=== PATIENT | female | born 1955 | race Caucasian/White ===

== ENCOUNTER 2019-04-16 04:28 | Emergency (ER) | payer BC ==
[2019-04-16] MEDS: ONDANSETRON 4 MG INJ IV (06:57)
[2019-04-16] MEDS: morphine 4 MG/ML VIAL IV (06:58)
[2019-04-16] MEDS: METHYLPREDNISOLONE 125 MG INJ IV (06:58)
[2019-04-16 07:05] LABS: WHITE BLOOD COUNT 11.9 10^3/ul (4.8-10.8)
[2019-04-16 07:05] LABS: HEMATOCRIT 38.2 % (37.0-47.0); HEMOGLOBIN 12.7 g/dl (12.0-16.0); MEAN CORPUSCULAR HEMOGLOBIN 29.4 pg (29.0-33.0); MEAN CORPUSCULAR HGB CONC 33.2 g/dl (32.0-37.0); MEAN CORPUSCULAR VOLUME 88.4 fl (82.0-101.0); MEAN PLATELET VOLUME 10.5 fl (7.4-10.4); PLATELET COUNT 170 10^3/UL (140-415); RED BLOOD COUNT 4.32 10^6/ul (4.20-5.40); RED CELL DISTRIBUTION WIDTH 12.8 % (11.5-14.5)
[2019-04-16 07:09] LABS: POSITIVE DIFF @See below
[2019-04-16 07:10] LABS: ADD MAN DIFF? YES
[2019-04-16] MEDS: IPRATROPIUM (NEB) 0.5 MG/2.5 ML AMP INH (07:16)
[2019-04-16] MEDS: ALBUTEROL 0.5% (NEB) 2.5 MG/0.5 ML AMP INH (07:16)
[2019-04-16 07:27] LABS: INR 1.14; PROTIME 14.7 Sec (11.9-14.9); PT RATIO 1.1
[2019-04-16 07:28] LABS: PARTIAL THROMBOPLASTIN TIME 36.3 Sec (23.0-35.0)
[2019-04-16 07:30] LABS: ALANINE AMINOTRANSFERASE 15 IU/L (13-69); ALBUMIN 4.3 g/dl (3.3-4.9); ALKALINE PHOSPHATASE 81 IU/L (42-121); ANION GAP 11 (5-13); ASPARTATE AMINO TRANSFERASE 20 IU/L (15-46); BILIRUBIN,INDIRECT 1.5 mg/dl (0-1.1); BILIRUBIN,TOTAL 1.5 mg/dl (0.2-1.3); BLOOD UREA NITROGEN 20 mg/dl (7-20); CALCIUM 9.4 mg/dl (8.4-10.2); CARBON DIOXIDE 25 mmol/L (21-31); CHLORIDE 99 mmol/L (97-110); CREATINE KINASE 63 IU/L (23-200); CREATININE 0.85 mg/dl (0.44-1.00); Estimated GFR > 60 mL/min (>60); GLUCOSE 298 mg/dl (70-220); POTASSIUM 4.6 mmol/L (3.5-5.1); SODIUM 135 mmol/L (135-144); TOTAL PROTEIN 8.2 g/dl (6.1-8.1)
[2019-04-16 07:41] LABS: B-TYPE NATRIURETIC PEPTIDE 136 PG/ML (0-125); CK INDEX 0.5; CK-MB 0.32 ng/ml (0.0-2.4); TROPONIN-I < 0.012 ng/ml (0.000-0.120)
[2019-04-16 08:51] LABS: BAND NEUTROPHILS #M 2.2 10^3/ul (0.0-0.6); BAND NEUTROPHILS % (M) 19 % (0-4); LYMPHOCYTES #M 0.4 10^3/ul (0.8-2.9); LYMPHOCYTES % (M) 4 % (15-51); MONOCYTE #M 0.4 10^3/ul (0.3-0.9); MONOCYTES % (M) 4 % (0-11); PLATELET ESTIMATE NORMAL; SEG NEUT #M 8.9 10^3/ul (1.6-7.5); SEGMENTED NEUTROPHILS (M) % 73 % (39-77)
[2019-04-16] MEDS: CEFTRIAXONE 1 GM/50 ML (PMX) 50 ML IVPB (09:03)
[2019-04-16] MEDS: AZITHROMYCIN 500MG/NS (PMX) 250 ML IV (09:36)
[2019-04-16 10:18] LABS: D-DIMER 1117.65 ng/ml (<460)
[2019-04-16] MEDS: SOD CHLORIDE 0.9% 100 ML (11:14)
[2019-04-16] MEDS: IOHEXOL 100 ML (11:15)
== END 2019-04-16 13:34 | disposition home or self-care (01) ==
LOC: E/R 04:28
DX: J45.901 Unspecified asthma with (acute) exacerbation (principal); Z79.84 Long term (current) use of oral hypoglycemic drugs
CPT/HCPCS: 36415; 71045; 71275; 80053; 82550; 82553; 83880; 84484; 85025; 85378; 85610; 85730; 87040-91; 93005; 94644; 96365; 96367; 96375; 99285-25

== ENCOUNTER 2019-04-23 16:26 | Inpatient (IN) | payer BC ==
[2019-04-23] MEDS ORDERED: ZOLPIDEM 5 MG TAB PO (17:30)
[2019-04-23] MEDS: LOSARTAN 50 MG TAB PO ×2 (17:30→18:51)
[2019-04-23] MEDS ORDERED: ACETAMINOPHEN 325 MG TAB PO (17:30)
[2019-04-23 18:05] LABS: ADD MAN DIFF? NO
[2019-04-23 18:09] LABS: BASOPHIL # 0.1 10^3/ul (0.0-0.1); BASOPHILS % 0.4 % (0.0-2.0); EOSINOPHILS # 0.1 10^3/ul (0.0-0.5); EOSINOPHILS % 0.7 % (0.0-7.0); HEMATOCRIT 37.8 % (37.0-47.0); HEMOGLOBIN 12.4 g/dl (12.0-16.0); LYMPHOCYTES # 2.1 10^3/ul (0.8-2.9); LYMPHOCYTES % 12.3 % (15.0-51.0); MEAN CORPUSCULAR HEMOGLOBIN 28.7 pg (29.0-33.0); MEAN CORPUSCULAR HGB CONC 32.8 g/dl (32.0-37.0); MEAN CORPUSCULAR VOLUME 87.5 fl (82.0-101.0); MEAN PLATELET VOLUME 9.8 fl (7.4-10.4); MONOCYTE # 0.5 10^3/ul (0.3-0.9); MONOCYTES % 2.8 % (0.0-11.0); NEUTROPHIL # 13.5 10^3/ul (1.6-7.5); NEUTROPHILS % 79.7 % (39.0-77.0); PLATELET COUNT 337 10^3/UL (140-415); RED BLOOD COUNT 4.32 10^6/ul (4.20-5.40); RED CELL DISTRIBUTION WIDTH 14.2 % (11.5-14.5)
[2019-04-23 18:28] LABS: INR 1.22; PROTIME 15.5 Sec (11.9-14.9); PT RATIO 1.2
[2019-04-23] MEDS ORDERED: GLUCAGON 1 MG INJ IM (18:30)
[2019-04-23] MEDS ORDERED: GLUCOSE GEL 15 GRAM TUBE BUCCAL (18:30)
[2019-04-23] MEDS ORDERED: DEXTROSE 50% 50 ML SYRINGE IV ×2 (18:30)
[2019-04-23] MEDS ORDERED: GLUCOSE GEL 15 GRAM TUBE PO ×2 (18:30)
[2019-04-23 18:32] LABS: ALANINE AMINOTRANSFERASE 47 IU/L (13-69); ALBUMIN 3.6 g/dl (3.3-4.9); ALBUMIN/GLOBULIN RATIO 0.87; ALKALINE PHOSPHATASE 89 IU/L (42-121); ANION GAP 11 (5-13); ASPARTATE AMINO TRANSFERASE 26 IU/L (15-46); BILIRUBIN,INDIRECT 0.8 mg/dl (0-1.1); BILIRUBIN,TOTAL 0.8 mg/dl (0.2-1.3); BLOOD UREA NITROGEN 24 mg/dl (7-20); CALCIUM 8.9 mg/dl (8.4-10.2); CARBON DIOXIDE 22 mmol/L (21-31); CHLORIDE 102 mmol/L (97-110); CREATININE 0.56 mg/dl (0.44-1.00); Estimated GFR > 60 mL/min (>60); GLUCOSE 318 mg/dl (70-220); PHOSPHORUS 3.8 mg/dl (2.5-4.9); SODIUM 135 mmol/L (135-144); TOTAL PROTEIN 7.7 g/dl (6.1-8.1)
[2019-04-23] MEDS: SOD CHLORIDE 0.9% 1,000 ML IV (18:48)
[2019-04-23 18:58] LABS: POTASSIUM 4.1 mmol/L (3.5-5.1)
[2019-04-23] MEDS: metFORMIN 500 MG TAB PO (19:16)
[2019-04-23] MEDS: INSULIN ASPART [NOVOLOG] 3 ML PEN SC (19:17)
[2019-04-23 19:27] LABS: ERYTHROCYTE SEDIMENTATION RATE 80 mm/Hr (0-30)
[2019-04-23] MEDS: ALBUTEROL/IPRATROPIUM (NEB) 3 ML AMP HHN (19:49)
[2019-04-23] MEDS: DIPHENHYDRAMINE 25 MG CAP PO (20:43)
[2019-04-23] MEDS: GABAPENTIN 300 MG CAP PO (20:43)
[2019-04-23] MEDS: GUAIFENESIN/DM (SR) TAB PO (20:43)
[2019-04-23] MEDS: ATORVASTATIN 10 MG TAB PO (20:43)
[2019-04-23] MEDS: INSULIN GLARGINE [LANTus] (100 UNITS/ML) SYG SC (20:44)
[2019-04-23 23:23] LABS: C-REACTIVE PROTEIN 15.9 mg/dl (0.0-0.9)
[2019-04-24] MEDS: PANTOPRAZOLE (EC) 40 MG TAB PO (05:44)
[2019-04-24 06:20] LABS: ADD UMIC YES; UR ASCORBIC ACID NEGATIVE (NEGATIVE); UR BACTERIA FEW /HPF (NONE SEEN); UR BILIRUBIN (Dip) NEGATIVE (NEGATIVE); UR BLOOD (Dip) NEGATIVE (NEGATIVE); UR CLARITY SLIGHTLY CLOUDY (CLEAR); UR COLOR AMBER (YELLOW); UR GLUCOSE (Dip) 3+ mg/dL (NEGATIVE); UR KETONES (Dip) TRACE mg/dL (NEGATIVE); UR LEUKOCYTE ESTERASE (Dip) TRACE Leu/ul (NEGATIVE); UR MUCUS MODERATE /HPF (NONE SEEN); UR NITRITE (Dip) NEGATIVE (NEGATIVE); UR RBC 8 /HPF (0-5); UR SPECIFIC GRAVITY (Dip) 1.035 (1.003-1.030); UR SQUAMOUS EPITHELIAL CELL FEW /HPF (FEW); UR TOTAL PROTEIN (Dip) 1+ mg/dl (NEGATIVE); UR UROBILINOGEN (Dip) NEGATIVE (NEGATIVE); UR WBC 18 /HPF (0-5)
[2019-04-24 06:28] LABS: ADD MAN DIFF? NO
[2019-04-24 06:35] LABS: BASOPHIL # 0.1 10^3/ul (0.0-0.1); BASOPHILS % 0.5 % (0.0-2.0); EOSINOPHILS # 0.2 10^3/ul (0.0-0.5); EOSINOPHILS % 1.3 % (0.0-7.0); HEMATOCRIT 36.4 % (37.0-47.0); HEMOGLOBIN 12.1 g/dl (12.0-16.0); LYMPHOCYTES # 2.1 10^3/ul (0.8-2.9); LYMPHOCYTES % 13.7 % (15.0-51.0); MEAN CORPUSCULAR HEMOGLOBIN 29.1 pg (29.0-33.0); MEAN CORPUSCULAR HGB CONC 33.2 g/dl (32.0-37.0); MEAN CORPUSCULAR VOLUME 87.5 fl (82.0-101.0); MEAN PLATELET VOLUME 10.3 fl (7.4-10.4); MONOCYTE # 0.6 10^3/ul (0.3-0.9); MONOCYTES % 3.6 % (0.0-11.0); NEUTROPHIL # 11.6 10^3/ul (1.6-7.5); NEUTROPHILS % 76.6 % (39.0-77.0); PLATELET COUNT 354 10^3/UL (140-415); RED BLOOD COUNT 4.16 10^6/ul (4.20-5.40); RED CELL DISTRIBUTION WIDTH 14.2 % (11.5-14.5)
[2019-04-24 06:35] LABS: WHITE BLOOD COUNT 15.1 10^3/ul (4.8-10.8)
[2019-04-24 07:04] LABS: Estimated GFR > 60 mL/min (>60)
[2019-04-24 07:15] LABS: ANION GAP 11 (5-13); CHLORIDE 105 mmol/L (97-110); POTASSIUM 4.2 mmol/L (3.5-5.1); SODIUM 137 mmol/L (135-144)
[2019-04-24 07:16] LABS: ALANINE AMINOTRANSFERASE 39 IU/L (13-69); ALBUMIN 3.3 g/dl (3.3-4.9); ALBUMIN/GLOBULIN RATIO 0.84; ALKALINE PHOSPHATASE 78 IU/L (42-121); ASPARTATE AMINO TRANSFERASE 24 IU/L (15-46); BILIRUBIN,INDIRECT 0.9 mg/dl (0-1.1); BILIRUBIN,TOTAL 0.9 mg/dl (0.2-1.3); BLOOD UREA NITROGEN 25 mg/dl (7-20); CALCIUM 8.5 mg/dl (8.4-10.2); CARBON DIOXIDE 21 mmol/L (21-31); CREATININE 0.56 mg/dl (0.44-1.00); GLUCOSE 230 mg/dl (70-220); PHOSPHORUS 3.6 mg/dl (2.5-4.9); TOTAL PROTEIN 7.2 g/dl (6.1-8.1)
[2019-04-24 07:34] LABS: T3 UPTAKE 46.9 % (23.5-40.5)
[2019-04-24] MEDS: ALBUTEROL/IPRATROPIUM (NEB) 3 ML AMP HHN ×3 (07:36→21:42)
[2019-04-24 07:50] LABS: HEMOGLOBIN A1C 8.3 % (0-5.9)
[2019-04-24] MEDS ORDERED: VANCOMYCIN IV PER PHARMACY XX (08:30)
[2019-04-24] MEDS: GUAIFENESIN/DM (SR) TAB PO ×2 (09:04→20:14)
[2019-04-24] MEDS: LOSARTAN 50 MG TAB PO (09:04)
[2019-04-24] MEDS: ESTRADIOL 1 MG TAB PO (09:04)
[2019-04-24] MEDS: metFORMIN 500 MG TAB PO ×2 (09:04→17:36)
[2019-04-24] MEDS: GABAPENTIN 300 MG CAP PO ×2 (09:04→20:16)
[2019-04-24] MEDS: SERTRALINE 100 MG TAB PO (09:04)
[2019-04-24] MEDS: L ACIDOPHIL/B LACTIS/B LONGUM CAPSULE PO ×2 (09:05→20:14)
[2019-04-24] MEDS: ENOXAPARIN 40 MG/0.4 ML SYG SC (09:09)
[2019-04-24] MEDS: VANCOMYCIN 1 GM 250 ML IVPB (10:07)
[2019-04-24 11:21] LABS: PROCALCITONIN 0.13 ng/mL (0.00-0.10)
[2019-04-24 11:36] LABS: FREE THYROXINE INDEX (Calc) 3.24 ug/ml (0.65-3.89); T4 (THYROXINE) 6.9 ug/dl (5.5-11.0)
[2019-04-24] MEDS: PIPER-TAZO 3.375 GM IV (PMX) 100 ML IVPB ×3 (12:14→23:29)
[2019-04-24] MEDS: DIPHENHYDRAMINE 25 MG CAP PO ×2 (12:49→22:29)
[2019-04-24] MEDS: INSULIN ASPART [NOVOLOG] 3 ML PEN SC ×3 (13:09→21:00)
[2019-04-24] MEDS: SOD CHLORIDE 0.9% 1,000 ML IV (17:36)
[2019-04-24] MEDS: HYDROCODONE/APAP (5/325) TAB PO (19:02)
[2019-04-24] MEDS: ATORVASTATIN 10 MG TAB PO (20:14)
[2019-04-24] MEDS: INSULIN GLARGINE [LANTus] (100 UNITS/ML) SYG SC (20:17)
[2019-04-24] MEDS: VANCOMYCIN 500 MG (PMX) 100 ML IVPB (21:48)
[2019-04-25] MEDS: ACCU-CHEK XX (01:41)
[2019-04-25 05:15] LABS: ADD MAN DIFF? NO
[2019-04-25 05:22] LABS: BASOPHILS % 0.3 % (0.0-2.0); EOSINOPHILS # 0.2 10^3/ul (0.0-0.5); EOSINOPHILS % 1.6 % (0.0-7.0); HEMATOCRIT 34.6 % (37.0-47.0); HEMOGLOBIN 11.2 g/dl (12.0-16.0); LYMPHOCYTES % 14.4 % (15.0-51.0); MEAN CORPUSCULAR HEMOGLOBIN 29.2 pg (29.0-33.0); MEAN CORPUSCULAR HGB CONC 32.4 g/dl (32.0-37.0); MEAN CORPUSCULAR VOLUME 90.1 fl (82.0-101.0); MEAN PLATELET VOLUME 10.1 fl (7.4-10.4); MONOCYTE # 0.5 10^3/ul (0.3-0.9); MONOCYTES % 3.8 % (0.0-11.0); NEUTROPHIL # 10.4 10^3/ul (1.6-7.5); PLATELET COUNT 327 10^3/UL (140-415); RED BLOOD COUNT 3.84 10^6/ul (4.20-5.40); RED CELL DISTRIBUTION WIDTH 14.4 % (11.5-14.5)
[2019-04-25 05:22] LABS: WHITE BLOOD COUNT 13.6 10^3/ul (4.8-10.8)
[2019-04-25 05:37] LABS: ANION GAP 10 (5-13); BLOOD UREA NITROGEN 14 mg/dl (7-20); CALCIUM 8.6 mg/dl (8.4-10.2); CARBON DIOXIDE 21 mmol/L (21-31); CHLORIDE 109 mmol/L (97-110); CREATININE 0.67 mg/dl (0.44-1.00); Estimated GFR > 60 mL/min (>60); GLUCOSE 149 mg/dl (70-220); MAGNESIUM 1.9 mg/dl (1.7-2.5); PHOSPHORUS 3.5 mg/dl (2.5-4.9); POTASSIUM 3.9 mmol/L (3.5-5.1); SODIUM 140 mmol/L (135-144)
[2019-04-25] MEDS: DIPHENHYDRAMINE 25 MG CAP PO ×3 (05:52→19:27)
[2019-04-25] MEDS: PANTOPRAZOLE (EC) 40 MG TAB PO (05:56)
[2019-04-25] MEDS: PIPER-TAZO 3.375 GM IV (PMX) 100 ML IVPB (06:00)
[2019-04-25] MEDS: ALBUTEROL/IPRATROPIUM (NEB) 3 ML AMP HHN ×3 (07:40→21:38)
[2019-04-25] MEDS: LOSARTAN 50 MG TAB PO (08:38)
[2019-04-25] MEDS: L ACIDOPHIL/B LACTIS/B LONGUM CAPSULE PO ×2 (08:38→20:09)
[2019-04-25] MEDS: GABAPENTIN 300 MG CAP PO ×2 (08:38→20:09)
[2019-04-25] MEDS: GUAIFENESIN/DM (SR) TAB PO ×2 (08:38→20:09)
[2019-04-25] MEDS: DOXYCYCLINE 100 MG TAB PO ×2 (08:38→20:09)
[2019-04-25] MEDS: metFORMIN 500 MG TAB PO ×2 (08:39→18:17)
[2019-04-25] MEDS: SERTRALINE 100 MG TAB PO (08:39)
[2019-04-25] MEDS: ENOXAPARIN 40 MG/0.4 ML SYG SC (08:39)
[2019-04-25] MEDS: ESTRADIOL 1 MG TAB PO (08:39)
[2019-04-25] MEDS: SOD CHLORIDE 0.9% 1,000 ML IV ×2 (08:41→15:44)
[2019-04-25] MEDS: INSULIN ASPART [NOVOLOG] 3 ML PEN SC ×3 (09:00→17:25)
[2019-04-25] MEDS ORDERED: INSULIN ASPART [NOVOLOG] 3 ML PEN SC (11:10)
[2019-04-25] MEDS: MEROPENEM 1 GM/50ML(PMX) 50 ML IVPB ×2 (14:49→22:16)
[2019-04-25 15:51] LABS: ANTI-DNA (DOUBLE STRANDED) <95 U/mL (< 301)
[2019-04-25 19:01] LABS: ANA SCREEN POSITIVE (NEGATIVE)
[2019-04-25] MEDS: ATORVASTATIN 10 MG TAB PO (20:09)
[2019-04-25] MEDS: INSULIN GLARGINE [LANTus] (100 UNITS/ML) SYG SC (20:23)
[2019-04-25 21:56] LABS: VANCOMYCIN,TROUGH < 5.0 ug/ml (10.0-20.0)
[2019-04-26] MEDS: PROMETHAZINE/CODEINE 5ML CUP PO ×2 (00:43→08:51)
[2019-04-26] MEDS: ACCU-CHEK XX (02:00)
[2019-04-26] MEDS: SOD CHLORIDE 0.9% 1,000 ML IV (02:26)
[2019-04-26 05:21] LABS: ADD MAN DIFF? NO
[2019-04-26 05:32] LABS: BASOPHILS % 0.1 % (0.0-2.0); EOSINOPHILS # 0.2 10^3/ul (0.0-0.5); EOSINOPHILS % 1.4 % (0.0-7.0); HEMATOCRIT 29.4 % (37.0-47.0); HEMOGLOBIN 9.7 g/dl (12.0-16.0); LYMPHOCYTES # 1.8 10^3/ul (0.8-2.9); LYMPHOCYTES % 15.6 % (15.0-51.0); MEAN CORPUSCULAR VOLUME 87.8 fl (82.0-101.0); MEAN PLATELET VOLUME 10.3 fl (7.4-10.4); MONOCYTE # 0.6 10^3/ul (0.3-0.9); MONOCYTES % 5.2 % (0.0-11.0); NEUTROPHIL # 8.9 10^3/ul (1.6-7.5); NEUTROPHILS % 76.2 % (39.0-77.0); PLATELET COUNT 308 10^3/UL (140-415); RED BLOOD COUNT 3.35 10^6/ul (4.20-5.40); RED CELL DISTRIBUTION WIDTH 14.2 % (11.5-14.5)
[2019-04-26 05:32] LABS: WHITE BLOOD COUNT 11.7 10^3/ul (4.8-10.8)
[2019-04-26] MEDS: PANTOPRAZOLE (EC) 40 MG TAB PO (05:43)
[2019-04-26] MEDS: MEROPENEM 1 GM/50ML(PMX) 50 ML IVPB ×3 (05:43→21:50)
[2019-04-26 06:07] LABS: ANION GAP 8 (5-13); BLOOD UREA NITROGEN 8 mg/dl (7-20); CALCIUM 8.6 mg/dl (8.4-10.2); CARBON DIOXIDE 22 mmol/L (21-31); CHLORIDE 109 mmol/L (97-110); CREATININE 0.57 mg/dl (0.44-1.00); Estimated GFR > 60 mL/min (>60); GLUCOSE 132 mg/dl (70-220); MAGNESIUM 1.7 mg/dl (1.7-2.5); PHOSPHORUS 3.2 mg/dl (2.5-4.9); POTASSIUM 3.6 mmol/L (3.5-5.1); SODIUM 139 mmol/L (135-144)
[2019-04-26] MEDS: INSULIN ASPART [NOVOLOG] 3 ML PEN SC ×3 (07:20→18:00)
[2019-04-26] MEDS: ESTRADIOL 1 MG TAB PO (08:46)
[2019-04-26] MEDS: L ACIDOPHIL/B LACTIS/B LONGUM CAPSULE PO ×2 (08:46→20:06)
[2019-04-26] MEDS: SERTRALINE 100 MG TAB PO (08:46)
[2019-04-26] MEDS: GUAIFENESIN/DM (SR) TAB PO ×2 (08:46→20:06)
[2019-04-26] MEDS: DOXYCYCLINE 100 MG TAB PO ×2 (08:46→20:06)
[2019-04-26] MEDS: metFORMIN 500 MG TAB PO ×2 (08:46→18:01)
[2019-04-26] MEDS: LOSARTAN 50 MG TAB PO (08:48)
[2019-04-26] MEDS: FLUCONAZOLE 100 MG TAB PO (08:48)
[2019-04-26] MEDS: GABAPENTIN 300 MG CAP PO ×2 (08:48→20:06)
[2019-04-26] MEDS: ENOXAPARIN 40 MG/0.4 ML SYG SC (09:00)
[2019-04-26] MEDS: ALBUTEROL/IPRATROPIUM (NEB) 3 ML AMP HHN ×3 (09:06→21:46)
[2019-04-26 09:52] LABS: PROCALCITONIN 0.11 ng/mL (0.00-0.10)
[2019-04-26] MEDS: DEXTROSE 5%-0.45% NACL 1,000 ML IV (13:12)
[2019-04-26] MEDS ORDERED: ALTEPLASE (CATHFLO) 2 MG INJ CATHETER (15:30)
[2019-04-26] MEDS: HYDROCODONE/APAP (5/325) TAB PO ×2 (16:21→21:50)
[2019-04-26 18:01] LABS: FLD PMN% 94.8 %; FLD RBC 11000 /uL; FLD WBC 8219 /cmm
[2019-04-26 18:06] LABS: FLD PMN% 93.6 %; FLD RBC 142000 /uL; FLD WBC 15269 /cmm
[2019-04-26 18:21] LABS: ANA PATTERN SPECKLED
[2019-04-26 18:58] LABS: FLUID AMYLASE 34 U/L
[2019-04-26 18:59] LABS: FLUID TYPE PLEURAL FLUID
[2019-04-26 19:00] LABS: FLUID GLUCOSE < 20 mg/dl; FLUID TOTAL PROTEIN 5.2 g/dl; FLUID TYPE PLEURAL FLUID
[2019-04-26 19:06] LABS: FLUID AMYLASE 38 U/L; FLUID GLUCOSE < 20 mg/dl; FLUID TYPE PLEURAL FLUID
[2019-04-26 19:07] LABS: FLUID TOTAL PROTEIN 5.3 g/dl; FLUID TYPE PLEURAL FLUID
[2019-04-26] MEDS: FENTAnyl 50 MCG/ML VIAL (19:20)
[2019-04-26] MEDS: ALTEPLASE (CATHFLO) 2 MG INJ CATHETER (19:20)
[2019-04-26 19:37] LABS: FLD MN% 5.2 %
[2019-04-26 19:38] LABS: FLD TYPE PLEURAL
[2019-04-26 19:38] LABS: FLD CLARITY HAZY; FLD COLOR YELLOW
[2019-04-26 19:39] LABS: FLD CLARITY BLOODY; FLD COLOR RED; FLD MN% 6.4 %
[2019-04-26 19:40] LABS: FLD TYPE PLEURAL
[2019-04-26] MEDS: NACL 0.9% 3 ML SYG IV (20:06)
[2019-04-26] MEDS: ATORVASTATIN 10 MG TAB PO (20:06)
[2019-04-26] MEDS: INSULIN GLARGINE [LANTus] (100 UNITS/ML) SYG SC (21:53)
[2019-04-27] MEDS: ACCU-CHEK XX (02:00)
[2019-04-27] MEDS: PANTOPRAZOLE (EC) 40 MG TAB PO (07:02)
[2019-04-27] MEDS: MEROPENEM 1 GM/50ML(PMX) 50 ML IVPB ×3 (07:02→21:30)
[2019-04-27] MEDS: INSULIN ASPART [NOVOLOG] 3 ML PEN SC ×3 (07:20→17:25)
[2019-04-27] MEDS: ALBUTEROL/IPRATROPIUM (NEB) 3 ML AMP HHN ×3 (08:10→20:30)
[2019-04-27] MEDS: GUAIFENESIN/DM (SR) TAB PO ×2 (08:26→21:00)
[2019-04-27] MEDS: metFORMIN 500 MG TAB PO ×2 (08:26→17:53)
[2019-04-27] MEDS: L ACIDOPHIL/B LACTIS/B LONGUM CAPSULE PO ×2 (08:26→21:00)
[2019-04-27] MEDS: DOXYCYCLINE 100 MG TAB PO ×2 (08:26→21:31)
[2019-04-27] MEDS: SERTRALINE 100 MG TAB PO (08:27)
[2019-04-27] MEDS: ESTRADIOL 1 MG TAB PO (08:27)
[2019-04-27] MEDS: FLUCONAZOLE 100 MG TAB PO (08:27)
[2019-04-27] MEDS: LOSARTAN 50 MG TAB PO (08:27)
[2019-04-27] MEDS: GABAPENTIN 300 MG CAP PO ×2 (08:27→21:32)
[2019-04-27] MEDS: ENOXAPARIN 40 MG/0.4 ML SYG SC (08:29)
[2019-04-27] MEDS: ATORVASTATIN 10 MG TAB PO (21:00)
[2019-04-27] MEDS: INSULIN GLARGINE [LANTus] (100 UNITS/ML) SYG SC (21:51)
[2019-04-28] MEDS: ACCU-CHEK XX (02:00)
[2019-04-28 04:57] LABS: ADD MAN DIFF? NO
[2019-04-28 05:03] LABS: BASOPHILS % 0.1 % (0.0-2.0); EOSINOPHILS # 0.2 10^3/ul (0.0-0.5); EOSINOPHILS % 3.5 % (0.0-7.0); HEMOGLOBIN 9.6 g/dl (12.0-16.0); LYMPHOCYTES # 1.7 10^3/ul (0.8-2.9); LYMPHOCYTES % 23.9 % (15.0-51.0); MEAN CORPUSCULAR HEMOGLOBIN 29.1 pg (29.0-33.0); MEAN CORPUSCULAR HGB CONC 33.1 g/dl (32.0-37.0); MEAN CORPUSCULAR VOLUME 87.9 fl (82.0-101.0); MEAN PLATELET VOLUME 10.1 fl (7.4-10.4); MONOCYTE # 0.5 10^3/ul (0.3-0.9); MONOCYTES % 6.5 % (0.0-11.0); NEUTROPHIL # 4.5 10^3/ul (1.6-7.5); NEUTROPHILS % 65.3 % (39.0-77.0); PLATELET COUNT 368 10^3/UL (140-415); RED CELL DISTRIBUTION WIDTH 13.9 % (11.5-14.5)
[2019-04-28 05:03] LABS: WHITE BLOOD COUNT 6.9 10^3/ul (4.8-10.8)
[2019-04-28] MEDS: PANTOPRAZOLE (EC) 40 MG TAB PO (06:45)
[2019-04-28] MEDS: MEROPENEM 1 GM/50ML(PMX) 50 ML IVPB ×3 (06:45→21:36)
[2019-04-28] MEDS: ALBUTEROL/IPRATROPIUM (NEB) 3 ML AMP HHN ×3 (07:27→19:57)
[2019-04-28 07:46] LABS: ALANINE AMINOTRANSFERASE 25 IU/L (13-69); ALBUMIN/GLOBULIN RATIO 0.83; ALKALINE PHOSPHATASE 65 IU/L (42-121); ANION GAP 10 (5-13); ASPARTATE AMINO TRANSFERASE 20 IU/L (15-46); BILIRUBIN,INDIRECT 0.3 mg/dl (0-1.1); BILIRUBIN,TOTAL 0.3 mg/dl (0.2-1.3); BLOOD UREA NITROGEN 7 mg/dl (7-20); CALCIUM 8.8 mg/dl (8.4-10.2); CARBON DIOXIDE 24 mmol/L (21-31); CHLORIDE 106 mmol/L (97-110); Estimated GFR > 60 mL/min (>60); GLUCOSE 114 mg/dl (70-220); POTASSIUM 3.3 mmol/L (3.5-5.1); SODIUM 140 mmol/L (135-144); TOTAL PROTEIN 6.6 g/dl (6.1-8.1)
[2019-04-28] MEDS: INSULIN ASPART [NOVOLOG] 3 ML PEN SC ×3 (09:14→17:25)
[2019-04-28] MEDS: metFORMIN 500 MG TAB PO ×2 (09:15→17:41)
[2019-04-28] MEDS: DOXYCYCLINE 100 MG TAB PO ×2 (09:16→20:55)
[2019-04-28] MEDS: LOSARTAN 50 MG TAB PO (09:16)
[2019-04-28] MEDS: ESTRADIOL 1 MG TAB PO (09:16)
[2019-04-28] MEDS: FLUCONAZOLE 100 MG TAB PO (09:16)
[2019-04-28] MEDS: RIFAMPIN 300 MG CAP PO (09:17)
[2019-04-28] MEDS: GUAIFENESIN/DM (SR) TAB PO ×2 (09:18→20:54)
[2019-04-28] MEDS: GABAPENTIN 300 MG CAP PO ×2 (09:18→20:55)
[2019-04-28] MEDS: L ACIDOPHIL/B LACTIS/B LONGUM CAPSULE PO ×2 (09:19→20:55)
[2019-04-28] MEDS: SERTRALINE 100 MG TAB PO (09:19)
[2019-04-28] MEDS: ENOXAPARIN 40 MG/0.4 ML SYG SC (09:28)
[2019-04-28] MEDS: ONDANSETRON 4 MG INJ IV (14:31)
[2019-04-28] MEDS: POTASSIUM CHLORIDE (SR) 20 MEQ TAB PO (17:41)
[2019-04-28] MEDS: ATORVASTATIN 10 MG TAB PO (20:55)
[2019-04-28] MEDS: INSULIN GLARGINE [LANTus] (100 UNITS/ML) SYG SC (20:58)
[2019-04-29] MEDS: ACCU-CHEK XX (02:00)
[2019-04-29] MEDS: MEROPENEM 1 GM/50ML(PMX) 50 ML IVPB (05:13)
[2019-04-29] MEDS: PANTOPRAZOLE (EC) 40 MG TAB PO (05:13)
[2019-04-29] MEDS: RIFAMPIN 300 MG CAP PO (05:16)
[2019-04-29 05:17] LABS: ADD MAN DIFF? NO
[2019-04-29 05:25] LABS: BASOPHILS % 0.1 % (0.0-2.0); EOSINOPHILS # 0.3 10^3/ul (0.0-0.5); EOSINOPHILS % 3.8 % (0.0-7.0); HEMATOCRIT 28.9 % (37.0-47.0); HEMOGLOBIN 9.6 g/dl (12.0-16.0); LYMPHOCYTES # 1.4 10^3/ul (0.8-2.9); LYMPHOCYTES % 16.7 % (15.0-51.0); MEAN CORPUSCULAR HGB CONC 33.2 g/dl (32.0-37.0); MEAN CORPUSCULAR VOLUME 87.3 fl (82.0-101.0); MEAN PLATELET VOLUME 10.2 fl (7.4-10.4); MONOCYTE # 0.5 10^3/ul (0.3-0.9); MONOCYTES % 6.4 % (0.0-11.0); NEUTROPHIL # 5.9 10^3/ul (1.6-7.5); NEUTROPHILS % 72.4 % (39.0-77.0); PLATELET COUNT 401 10^3/UL (140-415); RED BLOOD COUNT 3.31 10^6/ul (4.20-5.40); RED CELL DISTRIBUTION WIDTH 13.8 % (11.5-14.5)
[2019-04-29 05:25] LABS: WHITE BLOOD COUNT 8.2 10^3/ul (4.8-10.8)
[2019-04-29 06:33] LABS: ALANINE AMINOTRANSFERASE 22 IU/L (13-69); ALBUMIN 3.1 g/dl (3.3-4.9); ALBUMIN/GLOBULIN RATIO 0.83; ALKALINE PHOSPHATASE 74 IU/L (42-121); ANION GAP 9 (5-13); ASPARTATE AMINO TRANSFERASE 24 IU/L (15-46); BILIRUBIN,INDIRECT 0.8 mg/dl (0-1.1); BILIRUBIN,TOTAL 0.8 mg/dl (0.2-1.3); BLOOD UREA NITROGEN 9 mg/dl (7-20); CALCIUM 8.7 mg/dl (8.4-10.2); CARBON DIOXIDE 26 mmol/L (21-31); CHLORIDE 104 mmol/L (97-110); CREATININE 0.51 mg/dl (0.44-1.00); Estimated GFR > 60 mL/min (>60); GLUCOSE 99 mg/dl (70-220); POTASSIUM 3.5 mmol/L (3.5-5.1); SODIUM 139 mmol/L (135-144); TOTAL PROTEIN 6.8 g/dl (6.1-8.1)
[2019-04-29] MEDS: INSULIN ASPART [NOVOLOG] 3 ML PEN SC ×3 (07:20→17:25)
[2019-04-29] MEDS: ALBUTEROL/IPRATROPIUM (NEB) 3 ML AMP HHN ×3 (08:02→20:18)
[2019-04-29] MEDS: GUAIFENESIN/DM (SR) TAB PO ×2 (08:21→21:02)
[2019-04-29] MEDS: GABAPENTIN 300 MG CAP PO ×2 (08:22→21:02)
[2019-04-29] MEDS: metFORMIN 500 MG TAB PO ×2 (08:22→17:46)
[2019-04-29] MEDS: FLUCONAZOLE 100 MG TAB PO (08:23)
[2019-04-29] MEDS: L ACIDOPHIL/B LACTIS/B LONGUM CAPSULE PO ×2 (08:23→21:02)
[2019-04-29] MEDS: ESTRADIOL 1 MG TAB PO (08:23)
[2019-04-29] MEDS: LOSARTAN 50 MG TAB PO (08:23)
[2019-04-29] MEDS: SERTRALINE 100 MG TAB PO (08:24)
[2019-04-29] MEDS: DOXYCYCLINE 100 MG TAB PO ×2 (08:24→21:02)
[2019-04-29] MEDS: ENOXAPARIN 40 MG/0.4 ML SYG SC (08:26)
[2019-04-29 08:44] LABS: PROCALCITONIN 0.09 ng/mL (0.00-0.10)
[2019-04-29 09:19] LABS: IRON 18 ug/dl (35-150)
[2019-04-29 09:29] LABS: % IRON SATURATION 10 % SAT (22-52); TOTAL IRON BINDING CAPACITY 186 ug/dl (241-421)
[2019-04-29] MEDS: ATORVASTATIN 10 MG TAB PO (21:02)
[2019-04-29] MEDS: INSULIN GLARGINE [LANTus] (100 UNITS/ML) SYG SC (21:05)
[2019-04-30] MEDS: ACCU-CHEK XX (02:00)
[2019-04-30] MEDS: RIFAMPIN 300 MG CAP PO (05:27)
[2019-04-30] MEDS: PANTOPRAZOLE (EC) 40 MG TAB PO (05:27)
[2019-04-30] MEDS: ALBUTEROL/IPRATROPIUM (NEB) 3 ML AMP HHN ×2 (08:00→14:00)
[2019-04-30] MEDS ORDERED: morphine 2 MG INJ (08:17)
[2019-04-30] MEDS: morphine 2 MG INJ IV (08:25)
[2019-04-30] MEDS: ENOXAPARIN 40 MG/0.4 ML SYG SC (08:30)
[2019-04-30] MEDS: ESTRADIOL 1 MG TAB PO (08:31)
[2019-04-30] MEDS: SERTRALINE 100 MG TAB PO (08:31)
[2019-04-30] MEDS: DOXYCYCLINE 100 MG TAB PO (08:31)
[2019-04-30] MEDS: L ACIDOPHIL/B LACTIS/B LONGUM CAPSULE PO (08:33)
[2019-04-30] MEDS: LOSARTAN 50 MG TAB PO (08:33)
[2019-04-30] MEDS: metFORMIN 500 MG TAB PO (08:35)
[2019-04-30] MEDS: GABAPENTIN 300 MG CAP PO (09:00)
[2019-04-30] MEDS: GUAIFENESIN/DM (SR) TAB PO (09:00)
[2019-04-30] MEDS: ONDANSETRON 4 MG INJ IV (10:40)
[2019-04-30] MEDS: INSULIN ASPART [NOVOLOG] 3 ML PEN SC (11:10)
[2019-04-30] MEDS: SOD FERRIC GLUC COMPLX 125 MG in SOD CHLORIDE 0.9% 100 ML IVPB (13:00)
[2019-04-30] MEDS: LOPERAMIDE 2 MG CAP PO (14:20)
[2019-04-30] MEDS ORDERED: INSULIN GLARGINE [LANTus] (100 UNITS/ML) SYG SC (20:00)
[2019-05-01] MEDS ORDERED: ACCU-CHEK XX (02:00)
[2019-05-01 15:45] LABS: CREATININE, RANDOM URINE 59 mg/dL (20-275); MICROALBUMIN 0.8 mg/dL; MICROALBUMIN/CREATININE RATIO 14 (<30)
== END 2019-04-30 14:33 | disposition home or self-care (01) | DRG 194 ==
LOC: PP2 16:26 → MS1 04-24 18:41
PROC: 0B9P30Z Drainage of Left Pleura with Drainage Device, Percutaneous Approach (ICD-10-PCS; principal; 2019-04-26)
DX: J18.9 Pneumonia, unspecified organism (principal); J90 Pleural effusion, not elsewhere classified; M32.9 Systemic lupus erythematosus, unspecified; E11.65 Type 2 diabetes mellitus with hyperglycemia; J45.909 Unspecified asthma, uncomplicated; M79.7 Fibromyalgia; E06.3 Autoimmune thyroiditis; E78.5 Hyperlipidemia, unspecified; I10 Essential (primary) hypertension; D72.829 Elevated white blood cell count, unspecified; D50.9 Iron deficiency anemia, unspecified; Z90.49 Acquired absence of other specified parts of digestive tract; Z90.710 Acquired absence of both cervix and uterus
CPT/HCPCS: 71045; 71046; 71250; 76604; 77012; 80048; 80053; 80202; 81001; 82043; 82150; 82728; 82945; 82962; 83036; 83540; 83735; 83986; 84100; 84145; 84157; 84436; 84443; 84479; 85025; 85610; 85651; 85730; 86038; 86140; 86226; 86635; 87040-91; 87070; 87086; 87102; 87116; 89051; 93005; 93306; 94640; 94664; 97161